=== PATIENT | female | born 1995 | race Caucasian/White ===

== ENCOUNTER 2016-08-24 14:41 | Emergency (ER) | payer OTHER ==
[2016-08-24 14:51] VITALS: BP 111/74; PULSE 98; TEMP 98.1; BMI 24.4
--- NOTE | 2016-08-24 15:11 | PDOC ---
History of Present Illness - General Chief Complaint: Allergic Reaction Stated Complaint: ALLERGIC REACTION Time Seen by Provider: 08/24/16 15:09 History Source: Patient Exam Limitations: No Limitations - History of Present Illness Initial Comments: CHIEF COMPLAINT: 20 y/o female with PMH of depression c/o changes in her vision and muscles spasms in her face for the past 4 days. HISTORY OF PRESENT ILLNESS: The patient states she was recently admitted to [facility] where her Prozac dose was doubled and she was started on Risperdol 1 week ago. She states for the past 4 days she's had changes in her vision, muscle spasms in her face, difficulty speaking and the sensation that her tongue is swollen. She denies fever, chills, ZUNIGA, sweating, earache, changes in hearing, n/v/d, CP, SOB, cough, lethargy, dizziness, listlessness, abd pain, difficulty swallowing, sensation of her throat closing. Vital signs on arrival are notable for pulse of 98. REVIEW OF SYSTEMS: GENERAL/CONSTITUTIONAL: No fever/chills. No weakness. No weight change. HEAD, EYES, EARS, NOSE AND THROAT: + change in vision. No ear pain or discharge. No sore throat. +difficulty speaking. +sensation of swollen tongue. CARDIOVASCULAR: No chest pain or shortness of breath. RESPIRATORY: No cough, wheezing, or hemoptysis. GASTROINTESTINAL: No abd pain, nausea, vomiting, diarrhea. GENITOURINARY: No dysuria, frequency, or change in urination. MUSCULOSKELETAL: Face muscle twitching. No neck or back pain. SKIN: No rash or easy bruising. NEUROLOGIC: No headache, vertigo, loss of consciousness, or loss of sensation. PHYSICAL EXAM: GENERAL: The patient is awake, alert, and fully oriented, in no acute distress. She is well appearing, ambulatory, speaks in full sentences without difficulty. HEAD: Normal with no signs of trauma. ENT: Pupils equal, round and reactive to light, extraocular movements intact, sclera anicteric, conjunctiva clear. Neck supple. Noted faint muscle twitching around mouth. No tongue swelling. Pt is able to handle her own secretions without difficulty. No tonsilar edema. Airway patent. LUNGS: Clear to auscultation bilaterally. Normal excursion. No respiratory distress or use of accessory muscles. CV: RRR, S1/S2, no MRG. Cap refill < 2 sec. ABDOMEN: Soft, non-distended, non-tender even to deep palpation, no hepatomegaly or splenomegaly, no masses. EXTREMITIES: Normal range of motion, no edema. NEUROLOGICAL: Normal speech, normal gait. CN II-XII grossly intact. PSYCH: Normal mood, normal affect. SKIN: Warm, dry, normal turgor, no rashes or lesions noted. Past History - Past Medical History Allergies/Adverse Reactions: Allergies Allergy/AdvReac Type Severity Reaction Status Date / Time No Known Allergies Allergy Verified 08/24/16 14:51 Home Medications: Ambulatory Orders NK [No Known Home Medication] 02/25/15 Psychiatric Problems: Yes (DEPRESSION) - Immunization History Immunization Up to Date: Yes - Psycho/Social/Smoking Cessation Hx Anxiety: No Suicidal Ideation: No Smoking Status: No Smoking History: Current every day smoker Number of Cigarettes Smoked Daily: 8 Information on smoking cessation initiated: Yes 'Breaking Loose' booklet given: 08/24/16 Hx Alcohol Use: No Drug/Substance Use Hx: No Substance Use Type: None *Physical Exam - Vital Signs Last Vital Signs Temp Pulse Resp BP Pulse Ox 98.1 F 98 H 20 111/74 98 08/24/16 14:47 08/24/16 14:47 08/24/16 14:47 08/24/16 14:47 08/24/16 14:47 Medical Decision Making - Medical Decision Making A/P: 20 y/o afebrile female who recently had her prozac dose increased and risperdone added to her medication regimen c/o extrapyramidal symptoms. Will give 1 dose of prednisone but do believe her medications need to be decreased. Called [facility] and I am waiting for a call back from her psychiatrist for advice on lowering her meds. Spoke with Dr. Alvarez, psychiatrist at [facility], and he agrees that the symptoms appear to be a result of adding Risperdol. He instructed to d/c risperdol tonight and tomorrow night and in it's place take 50mg of Benadryl. He also instructed the patient to continue taking prozac as prescribed and f/u as planned at [facility] on Friday. The medication adjustment plan was discussed with the patient and her mother. Will give tonight's benadryl dose in the ER. Instructed the patient to return to the ER with any worsening or concerning symptoms. The patient and her mom verbalize understanding of all instructions, have no further questions and are awaiting discharge. *DC/Admit/Observation/Transfer Diagnosis at time of Disposition: Medication adverse effect - Discharge Dispostion Disposition: HOME Condition at time of disposition: Good - Referrals Referrals: Edis Hughes MD [Primary Care Provider] - - Patient Instructions Printed Discharge Instructions: DI for Adverse Drug Reaction -- Other Additional Instructions: Discharge Instructions: -Please continue taking Prozac as prescribed -Do not take Risperdol tonight or tomorrow night -You were given 50mg of Benadryl in the ER -Please take 50mg of Benadryl tomorrow evening -Follow up at [facility] [place] on Friday for further instructions
[2016-08-24] MEDS ORDERED: predniSONE 20 MG TABLET (UD) ONE (15:29)
[2016-08-24] MEDS ORDERED: predniSONE 20 MG TABLET (UD) PO ONE (15:45)
[2016-08-24] MEDS ORDERED: diphenhydrAMINE HCL 25 MG CAPSULE (FP) PO ONE ×2 (16:07→16:11)
== END 2016-08-24 16:13 | disposition home or self-care (01) ==
LOC: JER 14:41 → JERFT 14:41
DX: G25.89 Other specified extrapyramidal and movement disorders (principal); T43.595A Adverse effect of other antipsychotics and neuroleptics, initial encounter; Y92.018 Other place in single-family (private) house as the place of occurrence of the external cause
CPT/HCPCS: 99281-25